=== PATIENT | male | born 1995 | race Caucasian/White ===

== ENCOUNTER 2020-06-29 14:57 | Emergency (ER) | payer BC ==
[2020-06-29] MEDS ORDERED: LORazepam 1 MG Tab PO ONE (15:30)
--- NOTE | 2020-06-29 16:07 | EDM.PDOCBH ---
ED HPI GENERAL MEDICAL PROBLEM - General Chief Complaint: Behavioral/Psych Stated Complaint: MENTAL Time Seen by Provider: 06/29/20 15:45 Source of Information: Reports: Patient History Limitations: Reports: No Limitations - History of Present Illness INITIAL COMMENTS - FREE TEXT/NARRATIVE: patient with a PNHx of depression and ADHD who presented to the ER after a tele- health visit with a psychiatrist who referred him to be evaluated. Per patient and psychiatrist's report - patient ran out of his medications 3 months ago. Reports daily thoughts of '' not wanting be around '' but denies any suicidal plans or actual thoughts. Denies illicit drugs abuse. Reports that he wants to be treated and stabilized because he hasn't been productive lately. His psychiatrist placed him on a 72 hrs hold and directed him to the ER. Duration: Chronic Past Medical History - Past Health History Medical/Surgical History: Denies Medical/Surgical History Psychiatric History: Reports: ADHD, Other (See Below) (depression) ED ROS GENERAL - Review of Systems Review Of Systems: See Below Constitutional: Reports: No Symptoms HEENT: Reports: No Symptoms Respiratory: Reports: No Symptoms Cardiovascular: Reports: No Symptoms GI/Abdominal: Reports: No Symptoms Musculoskeletal: Reports: No Symptoms Neurological: Reports: No Symptoms Psychiatric: Reports: Depression ED EXAM, BEHAVIORAL HEALTH - Physical Exam Exam: See Below Exam Limited By: No Limitations General Appearance: Alert, WD/WN, No Apparent Distress Eye Exam: Bilateral Eye: EOMI Respiratory/Chest: No Respiratory Distress, Lungs Clear Cardiovascular: Normal Peripheral Pulses GI/Abdominal: Normal Bowel Sounds Extremities: Normal Inspection Neurological: Alert, Normal Mood/Affect Psychiatric: Alert, Normal Affect, Normal Cognition, Normal Mood, Oriented COURSE, BEHAVIORAL HEALTH COMP - Course Vital Signs: Last Vital Signs Temp 36.5 C 06/29/20 15:30 Pulse 61 06/29/20 15:30 Resp 18 06/29/20 15:30 BP 125/82 06/29/20 15:30 Pulse Ox 100 06/29/20 15:30 Orders, Labs, Meds: Active Orders 24 hr Category Date Time Status BASIC METABOLIC PANEL,BMP [CHEM] Stat Lab 06/29/20 15:30 Ordered ETHANOL BLOOD MEDICAL [CHEM] Stat Lab 06/29/20 15:30 Ordered TSH ULTRASENSITIVE [CHEM] Stat Lab 06/29/20 15:30 Ordered Laboratory Tests 06/29/20 06/29/20 Range/Units 15:41 15:41 WBC 7.8 (4.0-11.0) K/uL RBC 5.40 (4.50-6.50) M/uL Hgb 16.5 (13.0-18.0) g/dL Hct 47.7 (40.0-54.0) % MCV 88 (76-96) fL MCH 30.6 (27.0-32.0) pg MCHC 34.6 (31.0-35.0) g/dL RDW 14.2 (11.0-16.0) % Plt Count 224 (150-400) K/uL MPV 9.0 (6.0-10.0) fL Urine Opiates Screen Negative (NEGATIVE) Ur Oxycodone Screen Negative (NEGATIVE) Urine Methadone Screen Negative (NEGATIVE) Ur Barbiturates Screen Negative (NEGATIVE) Ur Tricyclics Screen Negative (NEGATIVE) Ur Phencyclidine Scrn Negative (NEGATIVE) Ur Amphetamine Screen Negative (NEGATIVE) U Methamphetamines Scrn Negative (NEGATIVE) Urine MDMA Screen Negative (NEGATIVE) U Benzodiazepines Scrn Negative (NEGATIVE) U Cocaine Metab Screen Negative (NEGATIVE) U Marijuana (THC) Screen Positive H (NEGATIVE) Medications Discontinued Medications Generic Name Dose Route Start Last Admin Trade Name Freq PRN Reason Stop Dose Admin Lorazepam 1 mg 06/29/20 15:30 Lorazepam 1 Mg Tab PO 06/29/20 15:31 ONETIME ONE Medical Clearance: 06/29/20 16:09 laboratory tests were ordered vitals were obtained patient is medically stable and has been very cooperative Discharge vs Psych Eval/Treatment:: 06/29/20 16:10 discussed the case with the patient and his mom - they all agree with the plan for admission to [facility] health facility for stabilization Departure - Departure Time of Disposition: 16:10 Disposition: DC/Tfer to Psych Hosp/Unit [facility] Condition: Good Clinical Impression: Depressive disorder - Discharge Information *PRESCRIPTION DRUG MONITORING PROGRAM REVIEWED*: Not Applicable *COPY OF PRESCRIPTION DRUG MONITORING REPORT IN PATIENT SLAVA: Not Applicable Referrals: PCP,None [Primary Care Provider] - Forms: ED Department Discharge Sepsis Event Note (ED) - Evaluation Sepsis Screening Result: No Definite Risk - Focused Exam Vital Signs: Vital Signs Temp Pulse Resp BP Pulse Ox 06/29/20 15:30 36.5 C 61 18 125/82 100 - Problem List & Annotations (1) Depressive disorder SNOMED Code(s): 89092337 Code(s): F32.9 - MAJOR DEPRESSIVE DISORDER, SINGLE EPISODE, UNSPECIFIED Status: Acute Priority: Low Current Visit: Yes - Problem List Review Problem List Initiated/Reviewed/Updated: Yes - My Orders Last 24 Hours: My Active Orders 06/29/20 15:30 BASIC METABOLIC PANEL,BMP [CHEM] Stat ETHANOL BLOOD MEDICAL [CHEM] Stat TSH ULTRASENSITIVE [CHEM] Stat - Assessment/Plan Last 24 Hours: My Active Orders 06/29/20 15:30 BASIC METABOLIC PANEL,BMP [CHEM] Stat ETHANOL BLOOD MEDICAL [CHEM] Stat TSH ULTRASENSITIVE [CHEM] Stat Plan: [place]
[2020-06-29] MEDS ORDERED: ARIPiprazole 10 MG Tab PO ONE (18:28)
[2020-06-29] MEDS ORDERED: LORazepam 1 MG Tab ONE (19:06)
== END 2020-06-29 19:05 ==
LOC: EEVIPCON 14:57 → LB.ED 14:57
DX: F32.9 Major depressive disorder, single episode, unspecified (principal); Z20.822 Contact with and (suspected) exposure to COVID-19
CPT/HCPCS: 36415; 80048; 80307; 84443; 85027; 99284; A9270-GY; U0002

== ENCOUNTER 2020-07-11 22:40 | Emergency (ER) | payer BC ==
[2020-07-12] MEDS ORDERED: Acetylcysteine 20% 200 MG/ML 30 ML Nebulizer Soln SDV ONE (00:03)
--- NOTE | 2020-07-12 13:57 | ER ---
HISTORY OF PRESENT ILLNESS: A 25-year-old male who comes in telling us that he took a mouthful of Tylenol about an hour and a half ago, which would be about 9:30. He stated they were 500 mg tablets, he is not sure. He thinks it was around 10 of the tablets. The patient, when asked if he was trying to commit suicide, hesitated with his answer and then said maybe. He came in asking for the antidote to correct the Tylenol dosage. The patient states he feels fine, just a little weird. I asked him why he did this and he tells me that he broke up with his girlfriend today which he had been with for 2 years. The patient moved to this area to be with her and now he wants to leave this area as soon as possible. The patient had been seen previously here on June 29 where he had a telemedicine consult with Dr. Almazan who at that time thought the patient could be dangerous to himself. The patient tells me he tried to do something like this once before as well. He denies drinking any alcohol tonight or using any other drugs. He takes Abilify and states he did take his dose today. OBJECTIVE: GENERAL APPEARANCE: The patient is awake and alert. No obvious distress. VITAL SIGNS: The patient is afebrile. Blood pressure 124/83, pulse 67, respirations 16, and O2 sats 100%. LUNGS: Clear. CARDIAC: Heart sounds distinct without murmurs. SKIN: Warm and dry. INITIAL TREATMENT: Poison Control was consulted. They suggested a Tylenol level which we did. The Tylenol level was 94.8. We then repeated it after 4 hours with a reading of 112, which is not in the toxic level. Comprehensive metabolic panel was obtained. Liver enzymes are normal. CBC is normal. We also had Telemedicine do a mental health consult on the patient. I spoke with the person after the consult. She feels that the patient is safe to go home. He has had a bad day and made a bad decision, but he came in on his own will to correct it and she does not feel that he is in any danger of further harm to himself or others at this time. The patient is on Abilify. He has a good family support system, she reports and she is confident that he is stable enough to leave our facility. We had the patient stay here until we were able to get his second Tylenol level and at that point he was discharged. He is to stay on his Abilify. The patient really does need to establish care with a primary care provider quickly either in this area; he should recheck within a couple of days in the clinic or if he does leave this area and he does go back to [place], he is to establish care as soon as he can there. The patient has no further questions. DIAGNOSIS: Medication overdose attempt. CRS/MODL /[id number]
== END 2020-07-12 01:50 | disposition home or self-care (01) ==
LOC: LB.ED 22:40
DX: T39.1X1A Poisoning by 4-Aminophenol derivatives, accidental (unintentional), initial encounter (principal)
CPT/HCPCS: 36415; 80053; 80143; 80307; 85025; 99284